=== PATIENT | male | born 1990 | race American Indian/Alaskan Native ===

== ENCOUNTER 2017-05-19 11:29 | Emergency (ER) | payer OTHER ==
[2017-05-19 12:01] VITALS: BP 146/89; PULSE 81; RESP 18; TEMP 98.2; O2SAT 97
--- NOTE | 2017-05-19 12:56 | ED PDOC ---
Lower Extremity Pain/Injury Time Seen by Provider: 05/19/17 12:05 Chief Complaint (Nursing): Lower Extremity Problem/Injury Chief Complaint (Provider): Right knee pain on/off for a month, worse x 1 week History Per: Patient History/Exam Limitations: no limitations Onset/Duration Of Symptoms: Days Current Symptoms Are (Timing): Still Present Severity: Moderate Pain Scale Rating Of: 5 Additional Complaint(s): Pt states he has swelling after activities and often feels the knee is catching on something when bending. Pt has history of meniscus repair in the right knee. Now trauma. PT reports improvement with ice and elevation at home. PT has not taken any apin medications and does not want any medication in ER Past Medical History Reviewed: Historical Data, Nursing Documentation, Vital Signs Vital Signs: Last Vital Signs Temp 98.2 F 05/19/17 11:59 Pulse 81 05/19/17 11:59 Resp 18 05/19/17 11:59 BP 146/89 05/19/17 11:59 Pulse Ox 97 05/19/17 11:59 - Medical History PMH: Back Problems (herniated disc), Fractures Denies: Chronic Kidney Disease - Surgical History Other surgeries: Knee - Family History Family History: States: No Known Family Hx - Living Arrangements Living Arrangements: With Family - Social History Current smoker - smoking cessation education provided: No - Home Medications Home Medications: Ambulatory Orders Medication Instructions Recorded Cephalexin [Keflex] 500 mg PO Q6 #20 cap 02/06/15 Ibuprofen [Motrin Tab] 800 mg PO Q6H PRN #20 tab 05/19/17 - Allergies Allergies/Adverse Reactions: Allergies Allergy/AdvReac Type Severity Reaction Status Date / Time shellfish derived Allergy ANAPHYLAXIS Verified 06/22/16 19:47 Review of Systems ROS Statement: Except As Marked, All Systems Reviewed And Found Negative Musculoskeletal: Positive for: Leg Pain (Right knee ) Skin: Negative for: Rash, Bruising Physical Exam - Reviewed Nursing Documentation Reviewed: Yes Vital Signs Reviewed: Yes - Physical Exam Appears: Positive for: Well, Non-toxic, No Acute Distress Head Exam: Positive for: ATRAUMATIC, NORMAL INSPECTION, NORMOCEPHALIC Skin: Positive for: Normal Color, Warm, DRY Eye Exam: Positive for: Normal appearance ENT: Positive for: Normal ENT Inspection Neck: Positive for: Normal, Painless ROM Respiratory: Negative for: Accessory Muscle Use, Respiratory Distress Pulses-Dorsalis Pedis (L): 2+ Pulses-Dorsalis Pedis (R): 2+ Pulses-Post. Tibialis (L): 2+ Pulses-Post. Tibialis (R): 2+ Back: Positive for: Normal Inspection Extremity: Positive for: Swelling (Mild), Other ((+)Arden's). Negative for: Normal ROM (Decreasd right knee flexion due to pain ), Tenderness, Deformity Neurologic/Psych: Positive for: Alert, Oriented - ECG O2 Sat by Pulse Oximetry: 97 Medical Decision Making Medical Decision Making: x-ray normal Disposition - Clinical Impression Clinical Impression: Knee pain - Patient ED Disposition Is Patient to be Admitted: No Counseled Patient/Family Regarding: Diagnosis, Need For Followup, Rx Given - Disposition Referrals: [facility] [Outside] [facility] [Outside] [facility] [Outside] Disposition: Routine/Home Disposition Time: 14:02 Condition: GOOD Additional Instructions: Ice, elevation, motrin. Take motrin with food for pain and inflammation. Please follow-up with orthopedics. Prescriptions: Ibuprofen [Motrin Tab] 800 mg PO Q6H PRN #20 tab PRN Reason: Pain Instructions: Knee Pain (ED)
--- NOTE | 2017-05-19 15:14 | RAD ---
PROCEDURE: Right Knee Radiographs. HISTORY: pain, swelling COMPARISON: None. FINDINGS: BONES: Normal. No fracture. JOINTS: Slight spurring of the tibial spines. Tiny posterior patellar osteophyte formation. JOINT EFFUSION: Trace suprapatellar joint effusion OTHER FINDINGS: None. IMPRESSION: No acute displaced fracture nor dislocation. Mild early DJD. Trace suprapatellar joint effusion.
== END 2017-05-19 14:14 | disposition home or self-care (01) ==
LOC: H.ER 11:29
DX: M25.561 Pain in right knee (principal)

== ENCOUNTER 2018-06-17 12:54 | Emergency (ER) | payer SELFPAY, OTHER ==
[2018-06-17 13:15] VITALS: TEMP 99.1; BMI 32.8
--- NOTE | 2018-06-17 13:38 | ED PDOC ---
HPI: Back Time Seen by Provider: 06/17/18 13:17 Chief Complaint (Nursing): Back Pain Chief Complaint (Provider): Back Pain History Per: Patient History/Exam Limitations: no limitations Onset/Duration Of Symptoms: Days (x11) Current Symptoms Are (Timing): Still Present Additional Complaint(s): 28 y/o male with a PMHx of chronic back pain s/p football injury presents to the ED complaining of lower back pain, onset 11 days ago. Patient states he was carrying a heavy bag and possibly aggravated his lower back. Patient reports back pain began radiating down to his right leg after running this morning eliciting a sharp pain. Denies taking medications prior to arrival. Patientdenies any bowel or bladder dysfunction. PMD: none Past Medical History Reviewed: Historical Data, Nursing Documentation, Vital Signs Vital Signs: Last Vital Signs Temp 99.1 F 06/17/18 13:13 Pulse 69 06/17/18 13:13 Resp 20 06/17/18 13:13 BP 132/74 06/17/18 13:13 Pulse Ox 99 06/17/18 13:13 - Medical History PMH: Back Problems (herniated disc), Fractures - Surgical History Surgical History: Back Surgery Other surgeries: left wrist surgery - Family History Family History: States: No Known Family Hx - Living Arrangements Living Arrangements: With Family - Social History Current smoker - smoking cessation education provided: No Alcohol: None Drugs: Denies - Home Medications Home Medications: Ambulatory Orders Medication Instructions Recorded Cephalexin [Keflex] 500 mg PO Q6 #20 cap 02/06/15 Ibuprofen [Motrin Tab] 800 mg PO Q6H PRN #20 tab 05/19/17 Cyclobenzaprine [Cyclobenzaprine 10 mg PO TID PRN #20 tab 06/17/18 HCl] Naproxen [Naprosyn] 500 mg PO BID #20 tab 06/17/18 - Allergies Allergies/Adverse Reactions: Allergies Allergy/AdvReac Type Severity Reaction Status Date / Time iodine Allergy ANAPHYLAXIS Verified 06/17/18 13:16 shellfish derived Allergy ANAPHYLAXIS Verified 06/22/16 19:47 Review of Systems ROS Statement: Except As Marked, All Systems Reviewed And Found Negative Constitutional: Negative for: Fever Gastrointestinal: Negative for: Abdominal Pain Genitourinary Male: Negative for: Dysuria, Incontinence Musculoskeletal: Positive for: Back Pain Physical Exam - Reviewed Nursing Documentation Reviewed: Yes Vital Signs Reviewed: Yes - Physical Exam Appears: Positive for: Well, Non-toxic, No Acute Distress Head Exam: Positive for: ATRAUMATIC Skin: Positive for: Normal Color. Negative for: Rash Eye Exam: Positive for: Normal appearance, EOMI, PERRL Neck: Positive for: Normal, Painless ROM Cardiovascular/Chest: Positive for: Regular Rate, Rhythm. Negative for: Bradycardia, Tachycardia Respiratory: Positive for: Normal Breath Sounds. Negative for: Accessory Muscle Use, Respiratory Distress Gastrointestinal/Abdominal: Positive for: Soft. Negative for: Tenderness, Distended, Guarding, Rebound Back: Positive for: Normal Inspection, Other (Tenderness across the lower lumbar region ). Negative for: L CVA Tenderness, R CVA Tenderness, Vertebral Tenderness Extremity: Positive for: Normal ROM. Negative for: Deformity Neurologic/Psych: Positive for: Alert, Oriented. Negative for: Motor/Sensory Deficits - ECG O2 Sat by Pulse Oximetry: 99 (RA) Pulse Ox Interpretation: Normal - Other Rad LS Spine X-ray X-Ray: Interpreted by Me, Viewed By Me X-Ray Interpretation: no fx, no dis Medical Decision Making Medical Decision Making: Time: 1333 Plan: -- Toradol 60 mg IM -- LS SPINE AP/LAT XR Patient aware of x-ray results, all questions answered. Patient reports improvement pain after Toradol given. Prescriptions for Naprosyn and Flexeril provided, patient referred to orthopedist on-call for follow-up. Scribe Attestation: Documented by Bernardino Bee, acting as a scribe for Charito Cordova PA-C. Provider Scribe Attestation: All medical record entries made by the Scribe were at my direction and personally dictated by me. I have reviewed the chart and agree that the record accurately reflects my personal performance of the history, physical exam, medical decision making, and the department course for this patient. I have also personally directed, reviewed, and agree with the discharge instructions and disposition. Disposition - Clinical Impression Clinical Impression: Back strain - Patient ED Disposition Is Patient to be Admitted: No Counseled Patient/Family Regarding: Studies Performed, Diagnosis, Need For Followup, Rx Given - Disposition Referrals: Ty Salomon MD [Staff Provider] - Disposition: Routine/Home Disposition Time: 14:20 Condition: STABLE Additional Instructions: Take prescription meds as directed as needed for pain. Follow-up with orthopedist for any persistent symptoms. Prescriptions: Cyclobenzaprine [Cyclobenzaprine HCl] 10 mg PO TID PRN #20 tab PRN Reason: Muscle Spasm Naproxen [Naprosyn] 500 mg PO BID #20 tab Instructions: Low Back Pain in Adults, Muscle Strain, Back Exercises Forms: [facility] (Turkish)
--- NOTE | 2018-06-17 14:59 | RAD ---
Date of service: 06/17/2018 PROCEDURE: Radiographs of the Lumbar Spine. HISTORY: Back pain COMPARISON: No prior. FINDINGS: BONES: There is normal alignment of the lumbar vertebral bodies. There is normal lumbar lordosis. There is no acute fracture, spondylolysis or spondylolisthesis. Bone mineralization is normal. DISC SPACES: The disc heights are maintained. OTHER FINDINGS: There are no pathologic soft tissue calcifications. Both sacroiliac joints are normal. IMPRESSION: No acute fracture, spondylolysis or spondylolisthesis.
[2018-06-17 18:50] VITALS: BP 128/74; PULSE 68; RESP 18; O2SAT 97
== END 2018-06-17 14:37 | disposition home or self-care (01) ==
LOC: H.ER 12:54
DX: S39.012A Strain of muscle, fascia and tendon of lower back, initial encounter (principal); Y93.61 Activity, american tackle football; Y92.321 Football field as the place of occurrence of the external cause
CPT/HCPCS: 72100; 96372; 99282; J1885